=== PATIENT | male | born 1980 | race Caucasian/White ===

== ENCOUNTER 2024-01-03 16:51 | Emergency (ER) | payer BC ==
[~2024-01-03] VITALS: Ht 167.6 cm; Wt 67.0 kg
[2024-01-03 17:07] VITALS: BP 116/87; PULSE 74; RESP 18; TEMP 98.7; O2SAT 99
[2024-01-03] MEDS: IBUPROFEN 600 MG TABLET PO ONE (18:23)
[2024-01-03] MEDS: PredniSONE 20 MG TABLET PO ONE (18:48)
[2024-01-03] MEDS ORDERED: PRED-554 PO (18:48)
[2024-01-03] MEDS ORDERED: IBUP-1492 PO (18:48)
== END 2024-01-03 19:06 | disposition home or self-care (01) ==
LOC: EDUNIT# 16:51 → EMS 17:04
DX: M65.842 Other synovitis and tenosynovitis, left hand (principal)
CPT/HCPCS: 99283; 73090; 29125; J7512